=== PATIENT | female | born 1995 | race Two or more races ===

== ENCOUNTER 2022-04-17 13:23 | Emergency (ER) | payer OTHER ==
[~2022-04-17] VITALS: Ht 157.5 cm; Wt 112.2 kg
[2022-04-17 14:21] VITALS: BP 119/88
[2022-04-17] MEDS ORDERED: KETOROLAC TROMETH 60MG/2ML VIAL IM ONE (15:00)
[2022-04-17] MEDS ORDERED: METH750T22 PO (15:45)
[2022-04-17] MEDS ORDERED: IBUP800T27 PO (15:45)
== END 2022-04-17 15:49 | disposition home or self-care (01) ==
LOC: ER 13:23
DX: S76.012A Strain of muscle, fascia and tendon of left hip, initial encounter (principal); S29.011A Strain of muscle and tendon of front wall of thorax, initial encounter; S80.12XA Contusion of left lower leg, initial encounter; V43.52XA Car driver injured in collision with other type car in traffic accident, initial encounter; Y93.89 Activity, other specified; Y92.410 Unspecified street and highway as the place of occurrence of the external cause; Y99.8 Other external cause status
CPT/HCPCS: 71101; 73502; 96372; 99284; J1885